=== PATIENT | male | born 1940 | race African-American/Black ===

== ENCOUNTER 2017-04-18 23:43 | Inpatient (IN) | payer MEDICARE, BC ==
--- OUTSIDE RECORDS SUMMARY | 2017-04-18 23:45 | XMS | Clinical Summary ---
:1940 Author Organization [facility] Address [address] [place] [address] Phone Care Team Providers Name Role Phone , Primary Care Provider Unavailable Allergies Not on File Current Medications Not on file Active Problems Not on file Social History Tobacco Use Types Packs/Day Years Used Date Never Assessed Sex Assigned at Date Recorded Not on file Last Filed Vital Signs Not on file Plan of Treatment Not on file Results Not on filefrom Last 3 Months
[2017-04-19 01:55] LABS: Troponin I 0.157 ng/mL (< 0.028)
[2017-04-19] MEDS ORDERED: Ondansetron ODT 4 MG TAB SL PRN (02:28)
[2017-04-19] MEDS ORDERED: Ondansetron HCl/PF 4 MG/2 ML Vial IVP PRN (02:28)
[2017-04-19] MEDS ORDERED: Sodium Chloride 0.9% 1,000 ML IV SCH (02:28)
[2017-04-19 02:36] VITALS: BMI 61.7
[2017-04-19] MEDS ORDERED: Piperacillin/Tazobactam 3.375 GM in Sodium Chloride 0.9% 100 ML IVPB SCH (04:00)
[2017-04-19] MEDS ORDERED: Potassium Chloride 20 MEQ in Premix Bag 1 BAG IVPB SCH (04:00)
[2017-04-19 07:29] LABS: Troponin I 0.181 ng/mL (< 0.028)
[2017-04-19 08:35] LABS: Anion Gap 16 mmol/L (10-20); BUN (Urea Nitrogen) 55 mg/dL (8.4-25.7); BUN/Creatinine Ratio 41.98; Calc. Creatinine Clearance 40 mL/min (70-130); Calcium 8.9 mg/dL (7.8-10.44); Carbon Dioxide 27 mmol/L (23-31); Chloride 112 mmol/L (98-107); Estimated GFR-MDRD 64; Magnesium 2.1 mg/dL (1.6-2.6); Phosphorus 3.5 mg/dL (2.3-4.7)
[2017-04-19 08:36] LABS: Digoxin 0.89 ng/mL (0.8-2.0)
[2017-04-19] MEDS ORDERED: Dextrose 5% in Water 1,000 ML IV PRN (08:47)
[2017-04-19] MEDS ORDERED: Nitroglycerin 0.4 MG TAB (25 Tab Bottle) PO PRN (08:47)
[2017-04-19] MEDS ORDERED: Dextrose 50% Abboject 50 ML SYRINGE SLOW IVP PRN (08:47)
[2017-04-19] MEDS ORDERED: 1/2 NS w/KCL 20 mEq 1,000 ML IV SCH (09:00)
[2017-04-19] MEDS ORDERED: FLU VACC TS2017-18 (>65YR) 0.5 ML SYRINGE IM ONE (09:00)
[2017-04-19] MEDS ORDERED: Acetaminophen 325 MG TAB PO PRN (09:15)
[2017-04-19] MEDS ORDERED: Acetaminophen 650 MG Suppository PR PRN (09:15)
[2017-04-19] MEDS ORDERED: Bisacodyl 10 MG SUPP PR PRN (09:15)
[2017-04-19] MEDS ORDERED: Eucerin (Mineral Oil/Petrolatum,White) 30 gm Jar TOP PRN (09:22)
[2017-04-19] MEDS ORDERED: Nitroglycerin 2% Ointment 1 INCH/1 GM Packet TOP PRN (09:22)
[2017-04-19] MEDS ORDERED: Polyethylene Glycol 3350 17 GM Packet PO PRN (09:22)
[2017-04-19] MEDS ORDERED: Diabetic Tussin 200 MG/10 ML UDCUP PO PRN (09:22)
[2017-04-19] MEDS ORDERED: RENALLY ADJUST ABX IVPB PRN (09:57)
--- NOTE | 2017-04-19 10:19 | CT ---
CT ABDOMEN AND PELVIS NONCONTRAST: History: Urinary tract infections. Sepsis. Renal failure. FINDINGS: Each renal collecting system and ureter and urinary bladder are decompressed without stone evident. Calcifications at each renal hilum are favored to be arterial in origin as there is prominent calcif ication throughout the arterial structures. Tiny pocket of gas is associated with the lower anterior wall of the urinary bladder. Lack of contrast limits evaluation for other abnormalities. Degenerative changes involve the lumbar spine. Calcified granulomata within the liver consistent with healed granulomatous disease. IMPRESSION: 1. No CT evidence of urinary tract obstruction or calcification. 2. Small pocket of gas at the anterior urinary bladder wall may be related to urinary bladder infect ion. 3. Atherosclerosis. POS: DARIO
[2017-04-19 10:24] LABS: #Lymphocytes 1.9 thou/uL (1.20-3.40); #Monocytes 0.9 thou/uL (0.11-0.59); #Neutrophils 12.4 thou/uL (1.40-6.50); %Basophils 0.1 % (0.0-1.0); %Eosinophils 0.3 % (0.0-10.0); %Lymphocytes 12.6 % (21.0-51.0); %Monocytes 5.9 % (0.0-10.0); Hematocrit 41.4 % (42.0-52.0); Mean Platelet Volume 11.1 fL (7.4-10.4); White Blood Cell (WBC) Count 15.2 thou/uL (4.8-10.8)
--- NOTE | 2017-04-19 10:25 | HP ---
PRIMARY CARE PHYSICIAN: Dr. Zaidi at [facility]. CODE STATUS: Full code. Surrogate decision maker to be verified. The patient is demented and this cannot be verified. CURRENT DIET AT [facility]: Thickened liquids only per [facility] records (nectar thick) diet c onsistency unclear. CHIEF COMPLAINT: Nausea, vomiting, diarrhea. HISTORY OF PRESENT ILLNESS: The patient is a 76-year-old male with chronic systolic heart failure, ventricular arrhythmias, advanced dementia, diabetes mellitus type 2. He was sent to the emergency room for evaluation for nausea, vomiting, and diarrhea. At this time, no information is available f rom the patient due to current cognitive status. The patient has a history of bilateral above knee amputation as well. Over the last 1-2 weeks, the patient has nausea, vomiting with decreased appetite. Per [facility] record, the patient has lost 14 pounds in the last few weeks. There was no fever or chills reporte d. There is no diarrhea or constipation reported. It is unclear when he had the last bowel movemen t. It is also unclear whether he had endoscopies in the past. The patient denies any abdominal harsha n at this time. In the emergency room at [place], his initial vital signs showed temperature 98.5, respirations 20, p ulse of 86, blood pressure 145/64. His WBC count was 18,000 with left shift. His sodium was 152 wi th potassium 3.3 with creatinine 2.32, BUN of 68. Troponins in the indeterminate range at 0.147. C hest x-ray was negative for infiltrate. His EKG showed normal sinus rhythm with nonspecific ST-T wa ve changes in the lateral leads. He was transferred to this facility for hospital admission. PAST MEDICAL HISTORY: 1. Diabetes mellitus type 2. 2. Hypertension. 3. Hyperlipidemia. 4. Chronic systolic heart failure, ejection fraction 35-40% range. 5. Advanced dementia. 6. Benign prostatic hypertrophy. 7. Paroxysmal atrial fibrillation. 8. Nonsustained ventricular tachycardia in 02/2017. 9. Status post AICD. 10. Paroxysmal atrial fibrillation. 11. Physical deconditioning. 12. Dysphagia. PAST SURGICAL HISTORY: 1. Coronary artery bypass grafting. 2. AICD placement. 3. Bilateral oberh-dur-sfnu amputation. ALLERGIES: No known drug allergies. CURRENT MEDICATIONS: (At the [facility]) 1. Flomax 0.4 mg daily. 2. Lisinopril 10 mg daily. 3. Lasix 80 mg b.i.d. that was started on 02/28/2017 when he was discharged from this facility. 4. Carvedilol 3.125 mg b.i.d. 5. Lipitor 20 mg at bedtime. 6. Zofran as needed. 7. Pepcid 20 mg b.i.d. 8. Namenda 10 mg b.i.d. 9. Insulin sliding scale. SOCIAL HISTORY: The patient currently resides at a nursing facility under the care of Dr. Zaidi. No history of smoking, alcohol or drug use. Family details unavailable. FAMILY HISTORY: Father with heart disease. REVIEW OF SYSTEMS: Cannot be reliably obtained from the patient due to current cognitive status. PHYSICAL EXAMINATION: VITAL SIGNS: As discussed above. GENERAL: A 76-year-old male with dementia, in no apparent distress. Denies any pain at this time. HEENT: Head atraumatic, normocephalic. Sclerae anicteric, dry mucous membranes. No oral lesion. NECK: Supple, no JVD appreciated. No carotid bruit. LUNGS: Showed scattered rales at bases. No wheezing or rhonchi. Lungs were symmetrical. CARDIOVASCULAR: S1, S2 present, 2/6 systolic murmur over the mitral area. AICD noted. No parastern al heaves or pulsations. ABDOMEN: Abdomen was soft, nontender, bowel sounds present, no rebound or guarding. No costoverteb ral angle tenderness. EXTREMITIES: The patient is status post bilateral idyva-aqm-lqgs amputations. SKIN: Warm and dry. LYMPH NODES: No palpable lymph nodes in the neck. PERIPHERAL VASCULAR: Radial pulses palpable bilaterally. MUSCULOSKELETAL: No joint swelling or tenderness. LABORATORY FINDINGS: As discussed above. EKG by my review as discussed above. Chest x-ray by my reena meeks as discussed above. IMPRESSION: 1. Acute kidney injury on chronic kidney disease stage 2 secondary to prerenal etiology. The patie nt is also on diuretics. He also has decreased appetite with nausea and vomiting over the past coup le of weeks. 2. Electrolyte imbalance. Patient has hypernatremia with a sodium of 152, potassium 3.3, probably secondary to dehydration. 3. Contraction alkalosis from diuresis/dehydration. 4. Abnormal troponins, probably secondary to demand ischemia. 5. Abnormal electrocardiogram. 6. Systemic inflammatory response syndrome, probably secondary to gastrointestinal etiology. Rule out urinary tract infection. 7. Swallow dysfunction. Patient is on nectar thick liquids at the [facility]. 8. Chronic systolic heart failure, ejection fraction 35-40% range. 9. Nonsustained ventricular tachycardia on telemetry earlier today with supraventricular tachycardi a. 10. Benign prostatic hypertrophy. 11. Diabetes mellitus type 2. 12. Advanced dementia. 13. Physical deconditioning. 14. Status post AICD. 15. Bilateral wljxd-jvo-vsxt amputation. PLAN: The patient will be monitored on telemetry. Cardiology will be consulted. We will gently re place electrolytes. Digoxin level in normal range. We will get a renal stone protocol. No contras t due to acute kidney injury. The patient cannot tolerate oral contrast due to nausea. We will hol d antibiotics for now. Consult Speech Therapy. We will keep him n.p.o. Plan of care was discussed with the patient. We will discuss the plan with the family when they arr cel[place].
[2017-04-19 10:45] LABS: Osmolality, Serum 342 mOsm/kg (280-295)
[2017-04-19 10:49] LABS: Digoxin 0.95 ng/mL (0.8-2.0)
[2017-04-19] MEDS: Meropenem 1 GM in Sodium Chloride 0.9% 100 ML IVPB SCH ×2 (11:22→22:54)
[2017-04-19] MEDS: Famotidine/PF 20 mg/2ml Vial SLOW IVP SCH (11:22)
[2017-04-19] MEDS: Potassium Chloride 40 MEQ in Dextrose 5% in Water 1,000 ML IV SCH ×2 (11:22)
[2017-04-19] MEDS: Insulin Regular 300 UNITS/3 ML VIAL SC PRN ×3 (11:23→20:54)
--- NOTE | 2017-04-19 14:31 | CON ---
DATE OF CONSULTATION: 04/19/2017 HISTORY OF PRESENT ILLNESS: Mr. Niels Gross is a 76-year-old black male who I evaluated once when he was in the hospital in 02/2017. At that time, he became short of breath, he was taken to [facility], given Lasix, and transferred here. He is extremely poor historian. At that time, stating that he was taken to [facility], but eventually taken to [place]. 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 He has a single chamber ICD and we never were able to identify the brand or be able to check the ICD. During that admission, he had episodes of paroxysmal atrial tachycardia and was placed on digoxin and he did not have any recurrence of his atrial arrhythmias. Also, he had episodes of nonsustained ventricular tachycardia, which only lasted several seconds and never had excessive rate. He was diuresed during that admission and was sent back to the skilled nursing in [place]. Again, the patient is a very poor historian and cannot give me much history at this time. He apparently had been having diarrhea and also vomiting. He was sent to [facility] ER and was found to have a BUN of 68, baseline 33, and a creatinine of 2.32, baseline 1.26. He was therefore transferred here for further evaluation. He denies any chest discomfort or shortness of breath. He denies any palpitations. PAST MEDICAL HISTORY: Ischemic cardiomyopathy, dementia, hypertension, hyperlipidemia, BPH, history of pancytopenia, diabetes, and generalized muscle wasting. OPERATIONS: Includes CABG, somewhere in [place], single chamber ICD implantation and bilateral bjttk-ncw-umko amputation. MEDICATIONS: Flomax 0.4 mg daily, Namenda 5 mg daily, lisinopril 10 mg daily, Levemir 7 units at bedtime, Humalog 10 units t.i.d., furosemide 80 mg b.i.d., digoxin 0.125 daily, carvedilol 3.125 b.i.d., and atorvastatin 20 at bedtime. ALLERGIES: None. SOCIAL AND FAMILY HISTORY: Unknown. REVIEW OF SYSTEMS: Unable to obtain due to patient's dementia. PHYSICAL EXAMINATION: VITAL SIGNS: Blood pressure 120/60, pulse of 74, sinus rhythm on the monitor. HEENT: PERRL. NECK: Supple. CHEST: Clear. CARDIAC: S1, S2 are normal, without any S3 or S4. There is a 1/6 holosystolic murmur at the apex. Carotid upstroke is normal, without bruits. ABDOMEN: Normal bowel sounds, without tenderness, organomegaly. EXTREMITIES: Revealed bilateral AKA. There is no edema. NEUROLOGIC: Patient is demented, but moves all extremities. SKIN: Warm and dry. LABORATORY DATA AND X-RAY FINDINGS: EKG revealed normal sinus rhythm, possible left atrial enlargement, nonspecific ST and T-wave changes. He has had an episode of idioventricular rhythm with five PVCs at approximately 100 per minute. Also, there is an episode of what appears to be atrial fibrillation with mild aberrancy. White count 18,000, hemoglobin 13.6, hematocrit 45.0, platelets 129,000. BUN 68, creatinine 2.32 which is fallen to a BUN of 55, creatinine of 1.31 with hydration overnight. Sodium 152, potassium 3.4, chloride 112, carbon dioxide 27, CK-MB is normal. Troponin I is minimally elevated at 0.181. Chest x-ray reveals no acute changes, single chamber ICD in place. IMPRESSION: 1. Vomiting and diarrhea. 2. Acute kidney injury secondary to volume depletion. 3. History of chronic systolic heart failure. 4. Ischemic cardiomyopathy with an ejection fraction of 35-40%. 5. Single chamber ICD - unable to identify the brand when he was here before. 6. History of nonsustained ventricular tachycardia. 7. Idioventricular rhythm during this admission. 8. Paroxysmal atrial tachycardia on last admission, which resolved after addition of digoxin. 9. Paroxysmal atrial fibrillation seen during this admission. 10. Hypertension. 11. Hypercholesterolemia. 12. Benign prostatic hypertrophy. 13. Diabetes. 14. Dementia. 15. Status post bilateral nubdj-bug-wndj amputation. PLAN: Again, attempts will be made to identify his ICD. He is being gently hydrated. Lasix, lisinopril are being held. He is being covered with broad- spectrum antibiotics. At the present time, I do not feel any further treatments for his cardiac arrhythmias is warranted. Digoxin level will be checked on this morning's blood with his volume depletion and acute kidney injury and nausea and vomiting. [facility]
[2017-04-19] MEDS ORDERED: cefTRIAXone\\ROCEPHIN 1 GM in Sodium Chloride 0.9% 100 ML IVPB SCH (14:45)
[2017-04-19] MEDS ORDERED: NPH, Human Insulin Isophane 300 UNIT/3 ML VIAL SC SCH (15:00)
[2017-04-19] MEDS: Heparin 5,000 UNITS/ML VIAL SC SCH (20:31)
[2017-04-19] MEDS: Nystatin Powder 15 GM BOT TOP SCH (20:31)
[2017-04-20] MEDS: Potassium Chloride 40 MEQ in Dextrose 5% in Water 1,000 ML IV SCH ×2 (01:32)
[2017-04-20 05:32] LABS: ALT (SGPT) 7 U/L (8-55); AST (SGOT) 10 U/L (5-34); Alkaline Phosphatase 74 U/L (40-150); Anion Gap 12 mmol/L (10-20); BUN (Urea Nitrogen) 28 mg/dL (8.4-25.7); Bilirubin, Total 0.5 mg/dL (0.2-1.2); Calc. Creatinine Clearance 62 mL/min (70-130); Calcium 8.9 mg/dL (7.8-10.44); Carbon Dioxide 30 mmol/L (23-31); Chloride 115 mmol/L (98-107); Estimated GFR-MDRD Greater than 90; Globulin 3.8 g/dL (2.4-3.5); Protein, Total 6.9 g/dL (5.8-8.1)
[2017-04-20 05:41] LABS: Hematocrit 40.1 % (42.0-52.0); Mean Platelet Volume 11.1 fL (7.4-10.4); Neutrophil 74 % (42-75); Red Blood Cell (RBC) Count 4.54 mill/uL (4.70-6.10); White Blood Cell (WBC) Count 14.5 thou/uL (4.8-10.8)
[2017-04-20 06:58] LABS: Magnesium 2.3 mg/dL (1.6-2.6)
[2017-04-20 07:09] LABS: Phosphorus 2.2 mg/dL (2.3-4.7)
[2017-04-20 07:28] LABS: Osmolality, Serum 329 mOsm/kg (280-295)
[2017-04-20] MEDS ORDERED: Potassium Phosphate 9 MMOL, Admixture Fee 1 EACH in Sodium Chloride 0.9% 100 ML IVPB SCH (08:30)
[2017-04-20] MEDS: Famotidine/PF 20 mg/2ml Vial SLOW IVP SCH (09:11)
[2017-04-20] MEDS: Heparin 5,000 UNITS/ML VIAL SC SCH (09:11)
[2017-04-20] MEDS: Nystatin Powder 15 GM BOT TOP SCH ×2 (09:12→21:04)
[2017-04-20] MEDS: Digoxin 0.125 MG TAB PO SCH (09:40)
[2017-04-20 09:57] LABS: Bilirubin Negative (Negative); Blood, Urine Negative (Negative); Glucose, Urine (Dipstick) 250 mg/dL (Negative); Ketone, Urine Negative (Negative); Nitrite Negative (Negative); Protein, Urine (Dipstick) Trace mg/dL (Neg-Trace)
[2017-04-20 10:00] LABS: Bacteria/HPF None Seen HPF (None Seen); Hyaline Casts/LPF 0-3 HYALINE CAST LPF (0-3 Hyaline)
[2017-04-20] MEDS: Meropenem 1 GM in Sodium Chloride 0.9% 100 ML IVPB SCH (11:50)
[2017-04-20] MEDS ORDERED: Digoxin 0.5 MG/2 ML AMP SLOW IVP SCH (12:45)
--- NOTE | 2017-04-20 15:00 | PDOC.PN ---
- Subjective Encounter Start Date: 04/20/17 Encounter Start Time: 11:00 Patient seen and examined. No new complaints. No overnight events - Objective Resuscitation Status: Resuscitation Status FULL:Full Resuscitation MAR Reviewed: Yes Vital Signs & Weight: Vital Signs (12 hours) Temp Pulse Resp BP Pulse Ox 04/20/17 13:41 64 04/20/17 12:00 98.9 F 59 L 16 138/62 94 L 04/20/17 09:40 64 04/20/17 08:00 98.5 F 64 16 150/69 H 97 04/20/17 07:30 98.3 F 65 16 04/20/17 04:50 98.3 F 65 16 151/66 H 95 04/20/17 03:17 96 Weight Weight 134 lb I&O: 04/19/17 04/20/17 04/21/17 06:59 06:59 06:59 Intake Total 1625 Balance 1625 Result Diagrams: 04/20/17 04:47 04/20/17 04:47 Additional Labs: Accuchecks 04/20/17 04/20/17 04/20/17 12:05 09:13 04:37 POC Glucose 209 H 199 H 176 H 04/20/17 04/19/17 04/19/17 00:01 20:48 18:13 POC Glucose 171 H 277 H 254 H Radiology Reviewed by me: Yes (CT abd - ?UTI) EKG Reviewed by me: Yes (SR, tachyarrythmia) Phys Exam - Physical Examination Constitutional: NAD HEENT: moist MMs Neck: no JVD Respiratory: no wheezing, no rales, no rhonchi Symmetrical Cardiovascular: RRR, no rub no heaves/pulsations Gastrointestinal: soft, non-tender, no distention, positive bowel sounds Neurological: non-focal, normal sensation, moves all 4 limbs Psychiatric: normal affect Deviation from normal: Baseline dementia, Alert/Awake Skin: no rash Dx/Plan - Plan IMPRESSION: 1. Acute kidney injury on chronic kidney disease stage 2 . improving 2. Electrolyte imbalance (hypernatremia/hypokalemia/hypophophatemia) 3. Contraction alkalosis from diuresis/dehydration. 4. Abnormal troponins, probably secondary to demand ischemia. 5. Abnormal electrocardiogram. 6. Systemic inflammatory response syndrome due to urinary tract infection. 7. Swallow dysfunction. Patient is on nectar thick liquids at the [facility]. NPO now 8. Chronic systolic heart failure, ejection fraction 35-40% range. 9. Nonsustained ventricular tachycardia on telemetry earlier today with supraventricular tachycardia. Cardiology following 10. Benign prostatic hypertrophy. 11. Diabetes mellitus type 2. 12. Advanced dementia. 13. Physical deconditioning. 14. Status post AICD. 15. Bilateral afdic-opm-swdf amputation. 16. Mild protein calorie malnutrition. Laboratory Tests 04/20/17 04/20/17 04:47 04:47 Serum Osmolality 329 H* Phosphorus 2.2 L PLAN * Change Heparin to Lovenox * Cardiology following * Not safe for any diet per HALL SUPERVISOR * Change betablockers and digoxin to IV * AM labs * Replace electrolytes * Cont to monitor * Cont current IVF - reduce KCL to 20 meq in each bag * Monitor for fluid overload * Cont sliding scale * Not on ACEI due to SHAZIA Review of Systems - Review of Systems Other: Cannot obtain due to current mentation - Medications/Allergies Allergies/Adverse Reactions: Allergies Allergy/AdvReac Type Severity Reaction Status Date / Time No Known Allergies Allergy Verified 02/23/17 03:41 Medications: Current Medications Acetaminophen (Tylenol) 650 mg CA Q4H PRN PRN Reason: Headache/Fever or Pain Acetaminophen (Tylenol) 650 mg PO Q4H PRN PRN Reason: Headache/Fever or Pain Albuterol/Ipratropium (Duoneb) 3 ml NEB [id number] PRN PRN Reason: SOB &/or Wheezing Bisacodyl (Dulcolax) 10 mg CA Q24H PRN PRN Reason: Constipation Carvedilol (Coreg) 3.125 mg PO BID-[facility] Dextrose/Water (Dextrose 50%) 25 gm SLOW IVP PRN PRN PRN Reason: Hypoglycemia Digoxin (Lanoxin) 0.125 mg PO DAILY [facility] Last Admin: 04/20/17 09:40 Dose: Not Given Enoxaparin Sodium (Lovenox) 30 mg SC 2100 [facility] Famotidine (Pepcid) 20 mg SLOW IVP Q24HR [facility] Last Admin: 04/20/17 09:11 Dose: 20 mg Glucagon (Glucagon) 1 mg IM PRN PRN PRN Reason: Hypoglycemia Guaifenesin (Robitussin Sf) 200 mg PO Q4H PRN PRN Reason: Cough Hydralazine HCl (Apresoline) 5 mg SLOW IVP Q4H PRN PRN Reason: SBP Greater Than 180 Dextrose/Water (D5w) 1,000 mls @ 0 mls/hr IV .Q0M PRN; As Directed PRN Reason: Hypoglycemia Potassium Chloride 40 meq/ (Dextrose/Water) 1,020 mls @ 75 mls/hr IV .[id number] [facility] Last Admin: 04/20/17 01:32 Dose: 1,020 mls Ceftriaxone Sodium 1 gm/ (Sodium Chloride) 100 mls @ 200 mls/hr IVPB DAILY [facility] Insulin Human Regular (Humulin R) 0 units SC .MILD SLIDING SCALE PRN PRN Reason: Mild Correctional Scale Last Admin: 04/19/17 18:40 Dose: 4 unit Insulin Human Regular (Humulin R) 0 units SC .BEDTIME SLIDING SC PRN PRN Reason: Bedtime Correctional Scale Last Admin: 04/19/17 20:54 Dose: 3 unit Metoprolol Tartrate (Lopressor) 2.5 mg IVP Q8HR [facility] Mineral Oil/White Petrolatum (Eucerin Cream) 0 gm TOP BIDPRN PRN PRN Reason: Dry Skin Miscellaneous Medication (Pharmacy To Dose) 1 each IVPB PRN PRN PRN Reason: Pharmacy to dose Nitroglycerin (Nitrostat) 0.4 mg PO Q5MIN PRN PRN Reason: Chest Pain Nitroglycerin (Nitro-Bid 2% Ointment) 0.5 inch TOP Q8H PRN PRN Reason: SBP Greater Than 180 Nystatin (Mycostatin Powder) 0 gm TOP BID [facility] Last Admin: 04/20/17 09:12 Dose: 1 applic Polyethylene Glycol (Miralax) 17 gm PO DAILYPRN PRN PRN Reason: Constipation Sodium Chloride (Flush - Normal Saline) 10 ml IVF Q12HR [facility] Last Admin: 04/20/17 09:13 Dose: Not Given Sodium Chloride (Flush - Normal Saline) 10 ml IVF PRN PRN PRN Reason: Saline Flush Last Admin: 04/19/17 05:07 Dose: 10 ml
[2017-04-20] MEDS: Metoprolol Tartrate 5 MG/5 ML VIAL IVP SCH ×2 (16:25→21:04)
[2017-04-20] MEDS: Carvedilol 3.125 MG TAB PO SCH (17:53)
[2017-04-20] MEDS: Dextrose 5% w/ 20 mEq KCl 1,000 ML IV SCH (17:56)
[2017-04-20] MEDS: Enoxaparin Sodium 30 MG/0.3 ML SYRINGE SC SCH (21:01)
[2017-04-20] MEDS ORDERED: Lorazepam 2 MG/ML VIAL SLOW IVP SCH (21:15)
[2017-04-21] MEDS: Insulin Regular 300 UNITS/3 ML VIAL SC PRN ×3 (05:09→18:33)
[2017-04-21 05:19] LABS: #Eosinphils 0.1 thou/uL (0.0-0.7); #Lymphocytes 2.5 thou/uL (1.20-3.40); #Monocytes 0.8 thou/uL (0.11-0.59); #Neutrophils 8.4 thou/uL (1.40-6.50); %Eosinophils 1.2 % (0.0-10.0); %Monocytes 6.5 % (0.0-10.0); Hematocrit 42.2 % (42.0-52.0); Mean Platelet Volume 11.8 fL (7.4-10.4); Red Blood Cell (RBC) Count 4.75 mill/uL (4.70-6.10); White Blood Cell (WBC) Count 11.8 thou/uL (4.8-10.8)
[2017-04-21] MEDS: Dextrose 5% w/ 20 mEq KCl 1,000 ML IV SCH (05:19)
[2017-04-21 05:28] LABS: Anion Gap 10 mmol/L (10-20); BUN (Urea Nitrogen) 16 mg/dL (8.4-25.7); BUN/Creatinine Ratio 18.39; Calc. Creatinine Clearance 61 mL/min (70-130); Calcium 8.9 mg/dL (7.8-10.44); Carbon Dioxide 27 mmol/L (23-31); Chloride 114 mmol/L (98-107); Estimated GFR-MDRD Greater than 90; Magnesium 2.3 mg/dL (1.6-2.6); Phosphorus 2.2 mg/dL (2.3-4.7)
[2017-04-21] MEDS: Metoprolol Tartrate 5 MG/5 ML VIAL IVP SCH (05:49)
[2017-04-21] MEDS ORDERED: Dextrose 5% w/ 20 mEq KCl 1,000 ML IV SCH (07:58)
[2017-04-21] MEDS: Carvedilol 3.125 MG TAB PO SCH ×3 (08:40→16:01)
[2017-04-21] MEDS ORDERED: cefTRIAXone\\ROCEPHIN 1 GM in Sodium Chloride 0.9% 100 ML IVPB SCH (09:00)
[2017-04-21] MEDS: K-Phos Neutral 250 MG TAB PO SCH ×4 (09:40→23:52)
[2017-04-21] MEDS: Nystatin Powder 15 GM BOT TOP SCH ×2 (09:43→21:32)
[2017-04-21] MEDS: Digoxin 0.125 MG TAB PO SCH (09:43)
[2017-04-21] MEDS: Famotidine/PF 20 mg/2ml Vial SLOW IVP SCH (09:48)
--- NOTE | 2017-04-21 15:48 | PDOC.CTH ---
<Nikki Nolen - Last Filed: 04/21/17 15:35> Cardiology Progress Note - Subjective the pt was seen and examined. No overnight events. No cardiac complaints. Now he can have PO. - Objective Vital Signs Temp Pulse Resp BP Pulse Ox 04/21/17 12:19 97.7 F 55 L 17 145/63 H 95 04/21/17 10:48 98.6 F 53 L 18 97 04/21/17 09:43 53 L 04/21/17 07:40 98.6 F 53 L 18 135/62 97 04/21/17 04:00 98.4 F 55 L 16 137/60 94 L Weight 136 lb 04/20/17 04/21/17 04/22/17 06:59 06:59 06:59 Intake Total 1625 1620 Output Total 50 Balance 1625 1570 - Physical Examination General/Neuro: other: (confused) Neck: no JVD present Lungs: CTA Heart: RRR Abdomen: soft Extremities: other: (Dutch AKAlexsandra) Other PE findings: Bruit in Rt carotid - Telemetry Telemetry Rhythm: SB-SR 50-60s - Labs Result Diagrams: 04/21/17 04:40 04/21/17 04:40 Troponin/CKMB Troponin I 0.181 ng/mL (< 0.028) H 04/19/17 07:03 - Assessment/Plan 1. AICD 2ndary to Ischemic CMY - S/p Single chamber [employer] scientific AICD in 2010 and last interrogation was in 2012. The record showed multiple Non- sustained V Tach with out any therapy, mainly on 04/2017. Hx of SVT during this admission 2. CAD with Hx of CABG in [place] - cont. monitor on tele 3. Chronic systolic HF with EF of 35-40% - 4. HTN - stable; may re-start Lisinopril if his BP is elevated since his renal function level is stable at this time 5. DM type 2 - managed by PCP 6. Dutch CHOPRA 7. Dementia with swallow dysfunction - on [place] thick liquid MAR reviewed Review of Systems - Review of Systems Constitutional: reports: no symptoms reported EENTM: reports: no symptoms reported Respiratory: reports: no symptoms reported Cardiac (ROS): reports: no symptoms reported ABD/GI: reports: no symptoms reported : reports: no symptoms reported Musculoskeletal: reports: no symptoms reported Skin: reports: no symptoms reported <Ani Johnson - Last Filed: 04/21/17 20:08> Cardiology Progress Note - Objective Vital Signs Temp Pulse Resp BP Pulse Ox 04/21/17 15:40 97.4 F L 58 L 16 160/63 H 98 04/21/17 12:19 97.7 F 55 L 17 145/63 H 95 04/21/17 10:48 98.6 F 53 L 18 97 04/21/17 09:43 53 L Weight 136 lb 04/20/17 04/21/17 04/22/17 06:59 06:59 06:59 Intake Total 1625 1620 1085 Output Total 50 Balance 1625 1570 1085 - Labs Result Diagrams: 04/21/17 04:40 04/21/17 04:40 Troponin/CKMB Troponin I 0.181 ng/mL (< 0.028) H 04/19/17 07:03 - Assessment/Plan Pt. was seen and eval. by me. I agree with the A\P by the PUBLIC ADDRESS ANNOUNCER. Pt. and plan discussed.
[2017-04-21] MEDS ORDERED: Lorazepam 0.5 MG TAB PO PRN (16:58)
--- NOTE | 2017-04-21 17:00 | PDOC.EVN ---
Event Note - Event Note Event Note: Pt pulled IV line. Refusing new IV access. Will leave IV out for now. Will reassess in AM based on labs.
--- NOTE | 2017-04-21 20:11 | PDOC.PN ---
- Subjective Encounter Start Date: 04/21/17 Encounter Start Time: 13:00 Patient seen and examined. No new complaints. No overnight events. No CP. - Objective Resuscitation Status: Resuscitation Status FULL:Full Resuscitation MAR Reviewed: Yes Vital Signs & Weight: Vital Signs (12 hours) Temp Pulse Resp BP Pulse Ox 04/21/17 15:40 97.4 F L 58 L 16 160/63 H 98 04/21/17 12:19 97.7 F 55 L 17 145/63 H 95 04/21/17 10:48 98.6 F 53 L 18 97 04/21/17 09:43 53 L Weight Weight 136 lb I&O: 04/20/17 04/21/17 04/22/17 06:59 06:59 06:59 Intake Total 1625 1620 1085 Output Total 50 Balance 1625 1570 1085 Result Diagrams: 04/21/17 04:40 04/21/17 04:40 Additional Labs: Accuchecks 04/21/17 04/21/17 04/21/17 16:30 12:08 04:27 POC Glucose 281 H 249 H 283 H 04/21/17 04/20/17 00:40 17:15 POC Glucose 288 H 245 H EKG Reviewed by me: Yes (SR/NSVT) Phys Exam - Physical Examination Constitutional: NAD Neck: no JVD Respiratory: no wheezing, no rhonchi Cardiovascular: RRR, no rub Gastrointestinal: soft, non-tender, positive bowel sounds Dx/Plan - Plan IMPRESSION: 1. Acute kidney injury on chronic kidney disease stage 2 . 2. Electrolyte imbalance (hypernatremia/hypokalemia/hypophophatemia) Phosphorus 2.2 3. Sepsis suspected due to Aspiration pneumonia. Urine cultures negative 4. Abnormal troponins, probably secondary to demand ischemia. 5. Abnormal electrocardiogram/Tele 6. Systemic inflammatory response syndrome due to urinary tract infection. 7. Swallow dysfunction. Patient is on nectar thick liquids at the [facility]. on modified diet 8. Chronic systolic heart failure, ejection fraction 35-40% range. s/p AICD 9. Nonsustained ventricular tachycardia on telemetry earlier today with supraventricular tachycardia. Cardiology following 10. Benign prostatic hypertrophy. 11. Diabetes mellitus type 2. 12. Advanced dementia. 13. Physical deconditioning. 14. Status post AICD. 15. Bilateral [id number] amputation. 16. Mild protein calorie malnutrition. 17. Contraction alkalosis from diuresis/dehydration. PLAN * Cont betablockers and digoxin * AM labs * Replace electrolytes * Cont to monitor * Cont IVF * Monitor for fluid overload * Cont insulin sliding scale * Not on ACEI due to SHAZIA Review of Systems - Review of Systems Other: Cannot obtain due to current mentation - Medications/Allergies Allergies/Adverse Reactions: Allergies Allergy/AdvReac Type Severity Reaction Status Date / Time No Known Allergies Allergy Verified 02/23/17 03:41 Medications: Current Medications Acetaminophen (Tylenol) 650 mg IN Q4H PRN PRN Reason: Headache/Fever or Pain Acetaminophen (Tylenol) 650 mg PO Q4H PRN PRN Reason: Headache/Fever or Pain Albuterol/Ipratropium (Duoneb) 3 ml NEB A8SH-TX PRN PRN Reason: SOB &/or Wheezing Amoxicillin/Clavulanate Potassium (Augmentin 600mg/5ml Oral Susp) 600 mg PO BID [facility] Bisacodyl (Dulcolax) 10 mg IN Q24H PRN PRN Reason: Constipation Carvedilol (Coreg) 3.125 mg PO BID-[facility] Last Admin: 04/21/17 16:01 Dose: 3.125 mg Dextrose/Water (Dextrose 50%) 25 gm SLOW IVP PRN PRN PRN Reason: Hypoglycemia Digoxin (Lanoxin) 0.125 mg PO DAILY [facility] Last Admin: 04/21/17 09:43 Dose: Not Given Enoxaparin Sodium (Lovenox) 30 mg SC 2100 [facility] Last Admin: 04/20/17 21:01 Dose: 30 mg Glucagon (Glucagon) 1 mg IM PRN PRN PRN Reason: Hypoglycemia Guaifenesin (Robitussin Sf) 200 mg PO Q4H PRN PRN Reason: Cough Hydralazine HCl (Apresoline) 5 mg SLOW IVP Q4H PRN PRN Reason: SBP Greater Than 180 Dextrose/Water (D5w) 1,000 mls @ 0 mls/hr IV .Q0M PRN; As Directed PRN Reason: Hypoglycemia Insulin Human Regular (Humulin R) 0 units SC .MILD SLIDING SCALE PRN PRN Reason: Mild Correctional Scale Last Admin: 04/21/17 18:33 Dose: 4 unit Insulin Human Regular (Humulin R) 0 units SC .BEDTIME SLIDING SC PRN PRN Reason: Bedtime Correctional Scale Last Admin: 04/19/17 20:54 Dose: 3 unit Lorazepam (Ativan) 0.5 mg PO Q6H PRN PRN Reason: Agitation Stop: 04/22/17 07:00 Memantine (Namenda) 5 mg PO BID [facility] Mineral Oil/White Petrolatum (Eucerin Cream) 0 gm TOP BIDPRN PRN PRN Reason: Dry Skin Miscellaneous Medication (Pharmacy To Dose) 1 each IVPB PRN PRN PRN Reason: Pharmacy to dose Nitroglycerin (Nitrostat) 0.4 mg PO Q5MIN PRN PRN Reason: Chest Pain Nitroglycerin (Nitro-Bid 2% Ointment) 0.5 inch TOP Q8H PRN PRN Reason: SBP Greater Than 180 Nystatin (Mycostatin Powder) 0 gm TOP BID [facility] Last Admin: 04/21/17 09:43 Dose: 1 applic Phosphorus (Kphos Neutral) 500 mg PO QID-WM [facility] Last Admin: 04/21/17 15:44 Dose: 500 mg Polyethylene Glycol (Miralax) 17 gm PO DAILYPRN PRN PRN Reason: Constipation Sodium Chloride (Flush - Normal Saline) 10 ml IVF Q12HR [facility] Last Admin: 04/21/17 09:42 Dose: 10 ml Sodium Chloride (Flush - Normal Saline) 10 ml IVF PRN PRN PRN Reason: Saline Flush Last Admin: 04/19/17 05:07 Dose: 10 ml
[2017-04-21] MEDS: Amoxicillin/Potassium Clav 600 mg/5 ml Oral Suspension PO SCH (21:31)
[2017-04-21] MEDS: Enoxaparin Sodium 30 MG/0.3 ML SYRINGE SC SCH (21:32)
[2017-04-22 06:44] LABS: #Basophils 0.1 thou/uL (0.0-0.2); #Eosinphils 0.1 thou/uL (0.0-0.7); #Monocytes 0.7 thou/uL (0.11-0.59); #Neutrophils 8.2 thou/uL (1.40-6.50); %Basophils 0.7 % (0.0-1.0); %Eosinophils 1.3 % (0.0-10.0); %Lymphocytes 18.2 % (21.0-51.0); %Monocytes 6.4 % (0.0-10.0); Hematocrit 42.2 % (42.0-52.0); Mean Platelet Volume 11.3 fL (7.4-10.4); Red Blood Cell (RBC) Count 4.78 mill/uL (4.70-6.10); White Blood Cell (WBC) Count 11.1 thou/uL (4.8-10.8)
[2017-04-22 07:19] LABS: Anion Gap 11 mmol/L (10-20); BUN (Urea Nitrogen) 11 mg/dL (8.4-25.7); BUN/Creatinine Ratio 15.07; Calc. Creatinine Clearance 72 mL/min (70-130); Calcium 8.9 mg/dL (7.8-10.44); Carbon Dioxide 28 mmol/L (23-31); Chloride 115 mmol/L (98-107); Estimated GFR-MDRD Greater than 90; Magnesium 2.2 mg/dL (1.6-2.6); Phosphorus 3.1 mg/dL (2.3-4.7)
[2017-04-22] MEDS: Digoxin 0.125 MG TAB PO SCH (09:41)
[2017-04-22] MEDS: Carvedilol 3.125 MG TAB PO SCH ×2 (09:41→17:26)
[2017-04-22] MEDS: Nystatin Powder 15 GM BOT TOP SCH ×2 (09:43→21:13)
[2017-04-22] MEDS: K-Phos Neutral 250 MG TAB PO SCH ×4 (10:23→21:12)
[2017-04-22] MEDS: Amoxicillin/Potassium Clav 600 mg/5 ml Oral Suspension PO SCH ×2 (10:25→21:12)
--- NOTE | 2017-04-22 11:24 | PDOC.PN ---
- Subjective Encounter Start Date: 04/22/17 Encounter Start Time: 11:10 Subjective: f/u for SHAZIA, suspected sepsis and multiple metabolic derangements and -: electrolyte disorders. No new complaints. - Objective Resuscitation Status: Resuscitation Status FULL:Full Resuscitation MAR Reviewed: Yes Vital Signs & Weight: Vital Signs (12 hours) Temp Pulse Resp BP Pulse Ox 04/22/17 09:41 62 04/22/17 04:00 97.5 F L 62 18 172/72 H 100 Weight Weight 134 lb I&O: 04/21/17 04/22/17 04/23/17 06:59 06:59 06:59 Intake Total 1620 1085 120 Output Total 50 Balance 1570 1085 120 Result Diagrams: 04/22/17 06:28 04/22/17 06:28 Additional Labs: Accuchecks 04/22/17 04/22/17 04/22/17 07:58 05:55 03:56 POC Glucose 169 H 202 H 176 H 04/21/17 04/21/17 04/21/17 20:53 16:30 12:08 POC Glucose 232 H 281 H 249 H Laboratory Tests 04/19/17 04/19/17 04/20/17 07:03 10:01 04:47 Sodium 152 H 153 H Serum Osmolality 342 H* Albumin 04/20/17 04/21/17 04/21/17 04:47 04:40 04:40 Sodium 147 H Serum Osmolality 329 H* 326 H Albumin 04/22/17 04/22/17 04:50 06:28 Sodium Serum Osmolality 320 H Albumin 3.0 L Microbiology 04/19/17 14:11 Stool Stool Lactoferrin - Final 04/19/17 14:11 Stool Stool Culture - Final 04/19/17 14:11 Stool Campylobacter Antigen Assay - Final 04/19/17 14:11 Stool Shiga Toxin Test - Final 04/19/17 14:11 Stool C. difficile GDH Antigen & Toxins - Final 04/19/17 09:25 Urine clean catch Urine Culture - Preliminary NO GROWTH AT 24 HOURS EKG Reviewed by me: Yes (Tele - 7 beats WCT, NSVT) Phys Exam - Physical Examination Constitutional: NAD HEENT: PERRLA Neck: no JVD, supple Respiratory: no wheezing Cardiovascular: RRR Gastrointestinal: soft, non-tender, no distention, positive bowel sounds bilat AKA Musculoskeletal: pulses present Neurological: moves all 4 limbs Skin: no rash, cap refill <2 seconds Dx/Plan (1) SHAZIA (acute kidney injury) Code(s): N17.9 - ACUTE KIDNEY FAILURE, UNSPECIFIED Status: Acute Comment: Resolved with fluid replacement (2) Hypernatremia Code(s): E87.0 - HYPEROSMOLALITY AND HYPERNATREMIA Status: Acute Comment: Persistent, resume IVF's with D5W at 75ml/h to increase free H20 intake, repeat Na+ level in am (3) Sepsis Code(s): A41.9 - SEPSIS, UNSPECIFIED ORGANISM Status: Suspected Comment: Suspected due to aspiration pneumonia, resolved (4) Aspiration pneumonia Code(s): J69.0 - PNEUMONITIS DUE TO INHALATION OF FOOD AND VOMIT Status: Acute Qualifiers: Aspiration pneumonia type: unspecified Laterality: unspecified laterality Comment: Continue Augmentin suspension, aspiration precautions (5) Hypophosphatemia Code(s): E83.39 - OTHER DISORDERS OF PHOSPHORUS METABOLISM Status: Acute Comment: KPhos QID with meals (6) Ischemic cardiomyopathy Code(s): I25.5 - ISCHEMIC CARDIOMYOPATHY Status: Chronic Comment: EF 35%, continue supportive care, compensated currently (7) NSVT (nonsustained ventricular tachycardia) Code(s): I47.2 - VENTRICULAR TACHYCARDIA Status: Acute Comment: Continue Coreg and Digoxin, ICD in place - Plan continue antibiotics, PT/OT, social welfare clerk, speech therapy, respiratory therapy, DVT proph w/lovenox Stable overall -: Continue D5W at 75ml/h -: Continue Augmentin BID -: Contiue KPhos QID -: AM lab: BMP, Mg++, PO3 * .
[2017-04-22] MEDS: Dextrose 5% in Water 1,000 ML IV SCH (17:27)
[2017-04-22] MEDS: Insulin Regular 300 UNITS/3 ML VIAL SC PRN (17:40)
--- NOTE | 2017-04-22 17:59 | PDOC.CTH ---
<Nikki Nolen - Last Filed: 04/22/17 17:59> Cardiology Progress Note - Subjective The pt was seen and examined. No overnight events. No cardiac complaints. The pt is confused - Objective Vital Signs Temp Pulse Resp BP Pulse Ox 04/22/17 16:00 98.2 F 69 18 148/65 H 04/22/17 09:41 62 04/22/17 08:00 98.4 F 62 18 154/68 H 93 L Weight 134 lb 04/21/17 04/22/17 04/23/17 06:59 06:59 06:59 Intake Total 1620 1085 480 Output Total 50 Balance 1570 1085 480 - Physical Examination General/Neuro: other: (only name) Neck: no JVD present Lungs: CTA Heart: RRR Abdomen: soft Extremities: other: (Bilat AKA) - Telemetry Telemetry Rhythm: SR - Labs Result Diagrams: 04/22/17 06:28 04/22/17 06:28 Troponin/CKMB Troponin I 0.181 ng/mL (< 0.028) H 04/19/17 07:03 - Assessment/Plan 1. AICD 2ndary to Ischemic CMY - S/p Single chamber [employer] AICD in 2010 and last interrogation was in 2012. The record showed multiple Non- sustained V Tach with out any therapy, mainly on 04/2017. Hx of SVT during this admission 2. CAD with Hx of CABG in [place] - cont. monitor on tele 3. Chronic systolic HF with EF of 35-40% - stable; cont. monitor 4. SHAZIA - stable after fluid replacement; cont. monitor 5. HTN - stable; may re-start Lisinopril if his BP is elevated since his renal function level is stable at this time 6. Hypernatremia - on D5W at 75ml/h; managed by PCP 7. DM type 2 - managed by PCP 8. Bilat AKA 9. Dementia with swallow dysfunction - on [place] thick liquid MAR reviewed Review of Systems - Review of Systems Constitutional: reports: no symptoms reported EENTM: reports: no symptoms reported Respiratory: reports: no symptoms reported Cardiac (ROS): reports: no symptoms reported ABD/GI: reports: no symptoms reported : reports: no symptoms reported Musculoskeletal: reports: no symptoms reported <Ani Johnson - Last Filed: 04/22/17 22:26> Cardiology Progress Note - Objective Vital Signs Temp Pulse Resp BP Pulse Ox 04/22/17 20:00 97.7 F 71 16 171/74 H 94 L 04/22/17 16:00 98.2 F 69 18 148/65 H Weight 134 lb 04/21/17 04/22/17 04/23/17 06:59 06:59 06:59 Intake Total 1620 1085 480 Output Total 50 Balance 1570 1085 480 - Labs Result Diagrams: 04/22/17 06:28 04/22/17 06:28 Troponin/CKMB Troponin I 0.181 ng/mL (< 0.028) H 04/19/17 07:03 - Assessment/Plan Pt. seen and evaluated. i agree with the A/P by the BRANCH SALES MANAGER
[2017-04-22] MEDS: Enoxaparin Sodium 30 MG/0.3 ML SYRINGE SC SCH (21:13)
[2017-04-23] MEDS: Insulin Regular 300 UNITS/3 ML VIAL SC PRN ×5 (01:11→21:30)
[2017-04-23 07:51] LABS: Anion Gap 12 mmol/L (10-20); BUN (Urea Nitrogen) 11 mg/dL (8.4-25.7); Calc. Creatinine Clearance 76 mL/min (70-130); Calcium 8.4 mg/dL (7.8-10.44); Carbon Dioxide 27 mmol/L (23-31); Chloride 114 mmol/L (98-107); Estimated GFR-MDRD Greater than 90; Magnesium 2.1 mg/dL (1.6-2.6); Phosphorus 3.6 mg/dL (2.3-4.7)
[2017-04-23] MEDS: Carvedilol 3.125 MG TAB PO SCH ×3 (09:39→19:08)
[2017-04-23] MEDS: Dextrose 5% in Water 1,000 ML IV SCH ×2 (09:40→20:44)
[2017-04-23] MEDS: Digoxin 0.125 MG TAB PO SCH (09:40)
[2017-04-23] MEDS: K-Phos Neutral 250 MG TAB PO SCH ×4 (09:45→20:38)
[2017-04-23] MEDS: Nystatin Powder 15 GM BOT TOP SCH ×2 (09:45→20:39)
[2017-04-23] MEDS: Amoxicillin/Potassium Clav 600 mg/5 ml Oral Suspension PO SCH ×2 (12:08→20:38)
--- NOTE | 2017-04-23 14:07 | PDOC.PN ---
- Subjective Encounter Start Date: 04/23/17 Encounter Start Time: 14:00 Subjective: f/u for dehydration and hypernatremia on current D5W IVF. No new complaints -: Tele showing more frequent NSVT started on Amiodarone. - Objective Resuscitation Status: Resuscitation Status FULL:Full Resuscitation MAR Reviewed: Yes Vital Signs & Weight: Vital Signs (12 hours) Temp Pulse Resp BP Pulse Ox 04/23/17 11:43 98.3 F 64 16 150/65 H 98 04/23/17 09:40 64 04/23/17 08:00 98.3 F 64 16 95 04/23/17 07:05 98.2 F 55 L 16 149/65 H 95 04/23/17 04:40 98.0 F 54 L 16 174/74 H 94 L Weight Weight 138 lb 1.6 oz I&O: 04/22/17 04/23/17 04/24/17 06:59 06:59 06:59 Intake Total 1085 1455 Balance 1085 1455 Result Diagrams: 04/22/17 06:28 04/23/17 07:15 Additional Labs: Accuchecks 04/23/17 04/23/17 04/23/17 11:47 08:32 04:52 POC Glucose 318 H 247 H 244 H 04/23/17 04/22/17 04/22/17 00:00 20:22 16:24 POC Glucose 260 H 302 H 265 H Microbiology 04/19/17 14:11 Stool Stool Lactoferrin - Final 04/19/17 14:11 Stool Stool Culture - Final 04/19/17 14:11 Stool Campylobacter Antigen Assay - Final 04/19/17 14:11 Stool Shiga Toxin Test - Final 04/19/17 14:11 Stool C. difficile GDH Antigen & Toxins - Final 04/19/17 09:25 Urine clean catch Urine Culture - Preliminary NO GROWTH AT 24 HOURS Laboratory Tests 04/19/17 04/19/17 04/20/17 07:03 10:01 04:47 Sodium 152 H 153 H Serum Osmolality 342 H* Albumin 04/20/17 04/21/17 04/21/17 04:47 04:40 04:40 Sodium 147 H Serum Osmolality 329 H* 326 H Albumin 04/22/17 04/22/17 04:50 06:28 Sodium Serum Osmolality 320 H Albumin 3.0 L Laboratory Tests 04/23/17 07:15 Calcium 8.4 Phosphorus 3.6 Magnesium 2.1 EKG Reviewed by me: Yes (Tele - NSVT episodes) Phys Exam - Physical Examination Constitutional: NAD alert, responsive HEENT: PERRLA Neck: no JVD, supple Respiratory: no wheezing, clear to auscultation bilateral Cardiovascular: RRR Gastrointestinal: soft, non-tender, no distention, positive bowel sounds bilat AKA Musculoskeletal: no edema, pulses present Neurological: moves all 4 limbs A x O x 2 Skin: normal turgor, cap refill <2 seconds Dx/Plan (1) SHAZIA (acute kidney injury) Code(s): N17.9 - ACUTE KIDNEY FAILURE, UNSPECIFIED Status: Acute Comment: Resolved with fluid replacement (2) Hypernatremia Code(s): E87.0 - HYPEROSMOLALITY AND HYPERNATREMIA Status: Acute Comment: Persistent, resume IVF's with D5W at 75ml/h to increase free H20 intake, repeat Na+ level in am (3) Sepsis Code(s): A41.9 - SEPSIS, UNSPECIFIED ORGANISM Status: Suspected Comment: Suspected due to aspiration pneumonia, resolved (4) Aspiration pneumonia Code(s): J69.0 - PNEUMONITIS DUE TO INHALATION OF FOOD AND VOMIT Status: Acute Qualifiers: Aspiration pneumonia type: unspecified Laterality: unspecified laterality Comment: Continue Augmentin suspension, aspiration precautions (5) Hypophosphatemia Code(s): E83.39 - OTHER DISORDERS OF PHOSPHORUS METABOLISM Status: Acute Comment: KPhos QID with meals (6) Ischemic cardiomyopathy Code(s): I25.5 - ISCHEMIC CARDIOMYOPATHY Status: Chronic Comment: EF 35%, continue supportive care, compensated currently (7) NSVT (nonsustained ventricular tachycardia) Code(s): I47.2 - VENTRICULAR TACHYCARDIA Status: Acute Comment: Continue Coreg and Digoxin, ICD in place, Amiodarone 400mg TID loading with plan for 200mg Daily on d/c - Plan continue antibiotics, PT/OT, social media sr strategy manager Stable currently -: Continue Amiodarone 400mg TID -: Continue IVF D5W at 75ml/h -: Continue Augmetin -: Continue KPhos 500mg TID * AM lab: BMP
[2017-04-23] MEDS: Enoxaparin Sodium 30 MG/0.3 ML SYRINGE SC SCH (20:38)
[2017-04-24] MEDS: Insulin Regular 300 UNITS/3 ML VIAL SC PRN ×3 (00:23→12:40)
[2017-04-24] MEDS: Digoxin 0.125 MG TAB PO SCH (09:27)
[2017-04-24] MEDS: K-Phos Neutral 250 MG TAB PO SCH (09:27)
[2017-04-24] MEDS: Amoxicillin/Potassium Clav 600 mg/5 ml Oral Suspension PO SCH (09:27)
[2017-04-24] MEDS: Nystatin Powder 15 GM BOT TOP SCH (09:28)
[2017-04-24] MEDS: Carvedilol 3.125 MG TAB PO SCH (09:28)
[2017-04-24 10:36] LABS: Anion Gap 14 mmol/L (10-20); BUN (Urea Nitrogen) 8 mg/dL (8.4-25.7); Calc. Creatinine Clearance 70 mL/min (70-130); Calcium 8.1 mg/dL (7.8-10.44); Carbon Dioxide 28 mmol/L (23-31); Chloride 107 mmol/L (98-107); Estimated GFR-MDRD Greater than 90
[2017-04-24 12:36] VITALS: BP 152/67; TEMP 98.7
--- NOTE | 2017-04-24 18:38 | DIS ---
DATE OF ADMISSION: 04/19/2017 DATE OF DISCHARGE: 04/24/2017 DISCHARGE DIAGNOSES: 1. Severe dehydration, iatrogenic, resolving. 2. Acute kidney injury on chronic kidney disease stage 2, resolved. 3. Hypernatremia secondary to #1, resolved. 4. Hypokalemia, resolved. 5. Contraction metabolic alkalosis secondarily to #1, resolved. 6. Nonsustained ventricular tachycardia, improved with amiodarone. 7. Chronic systolic congestive heart failure with ejection fraction of 35%-40%, compensated. 8. Idioventricular rhythm. 9. Diabetes mellitus type 2, insulin requiring. 10. Hypertension. 11. Advanced dementia. 12. Status post bilateral above the knee amputations. CONSULTATION: Dr. Hopkins with Cardiology Service. PERTINENT LABORATORY DATA AND X-RAY FINDINGS: Sodium ranged between 145-153, potassium ranged betwe en 3.4-3.9, creatinine ranged between 0.71-1.31. Serum osmolality ranged between 320-342, phosphoro us ranged between 2.2-3.6, magnesium ranged between 2.1-2.3, folate level 7.9. Cortisol 16.5. Stephanie min B12 level 348. CBC showed white blood cell count ranging between 11.1-15.2, hemoglobin 12.8, di goxin level 0.95 on 04/19/2017. Urine culture dated 04/19/2017 showed no growth at 48 hours. Stool culture negative, 04/19/2017. C. difficile antigen toxin dated 04/19/2017 negative. A 2D transtho racic echocardiogram dated 02/23/2017 showed ejection fraction of 35%-40%. Moderate left atrial dil ation. Severe tricuspid valve regurgitation. Portable chest x-ray dated 04/18/2017 showed chronic changes in the left mid and lower lung zone. No acute process identified. CT of the abdomen and pe lvis dated 04/19/2017 showed no acute intraabdominal process. HOSPITAL COURSE: Patient was initially admitted to the telemetry unit after presenting with nausea, vomiting, and diarrhea. The patient was noted with elevated creatinine and associated acute kidney injury, initiated on IV fluid hydration. The patient was also noted with concomitant hyponatremia with clinical evidence of severe dehydration. The patient was discontinued on Lasix therapy and giv en IV fluids with increased free water intake in the hospital course. Patient had multiple metaboli c derangements including hyponatremia, hypokalemia, and hypophosphatemia receiving replacement elect rolytes therapy throughout the hospital course. Due to the electrolyte disturbance, the patient was noted with nonsustained episodes of ventricular tachycardia as well as an idioventricular rhythm an d atrial fibrillation. Consultation was obtained by the Cardiology service with recommendations to initiate amiodarone therapy at which point patient was placed on 400 mg t.i.d. in conjunction with d igoxin and Coreg. Patient's overall heart rate had improved with sinus bradycardia noted on most re cent telemetry tracing. Overall, patient remained clinically stable after correction of multiple me tabolic derangements and dehydration and ready for discharge on 04/24/2017. DISCHARGE MEDICATIONS: 1. Amiodarone 200 mg 1 tablet p.o. daily. 2. Augmentin ES suspension 600 mg p.o. b.i.d. until 04/27/2017. 3. Lipitor 20 mg p.o. at bedtime. 4. Coreg 3.125 mg p.o. b.i.d. 5. Lanoxin 0.125 mg p.o. daily. 6. Pepcid 20 mg p.o. b.i.d. 7. Lasix 40 mg 1 tablet p.o. daily. 8. Humalog 10 units subcutaneously t.i.d. with meals. 9. Levemir 7 units subcutaneously at bedtime. 10. Lisinopril 10 mg 1 tablet p.o. daily. 11. Namenda 5 mg p.o. b.i.d. 12. Flomax 0.4 mg p.o. daily. FOLLOWUP: The patient may follow up with his primary care provider, Dr. Tito Zaidi at [facility]. CONDITION ON DISCHARGE: Fair. ACTIVITY: [place]. DIET: ADA with pureed texture nectar thick liquids. SPECIAL INSTRUCTIONS: Check BMP and digoxin level weekly. CODE STATUS: FULL. DISPOSITION: Discharged to [facility], 04/24/2017. Total time preparing and coordinating discharge is 37 minutes.
== END 2017-04-24 14:31 | DRG 871 ==
LOC: ERS 23:43 → 2NO 04-19 00:51
PROVIDERS: ADMIT Internal Medicine; ATTEND Internal Medicine
DX: A41.9 Sepsis, unspecified organism (principal); J69.0 Pneumonitis due to inhalation of food and vomit; N17.9 Acute kidney failure, unspecified; E87.0 Hyperosmolality and hypernatremia; E87.3 Alkalosis; E11.22 Type 2 diabetes mellitus with diabetic chronic kidney disease; E86.0 Dehydration; I13.0 Hypertensive heart and chronic kidney disease with heart failure and stage 1 through stage 4 chronic kidney disease, or unspecified chronic kidney disease; I50.22 Chronic systolic (congestive) heart failure; F03.90 Unspecified dementia, unspecified severity, without behavioral disturbance, psychotic disturbance, mood disturbance, and anxiety; I48.0 Paroxysmal atrial fibrillation; I47.1 Supraventricular tachycardia; E44.1 Mild protein-calorie malnutrition; Z68.44 Body mass index [BMI] 60.0-69.9, adult; N18.2 Chronic kidney disease, stage 2 (mild); Z79.4 Long term (current) use of insulin; I25.5 Ischemic cardiomyopathy; E83.39 Other disorders of phosphorus metabolism; E87.6 Hypokalemia; R13.10 Dysphagia, unspecified; N40.0 Benign prostatic hyperplasia without lower urinary tract symptoms; E78.5 Hyperlipidemia, unspecified; Z89.612 Acquired absence of left leg above knee; Z89.611 Acquired absence of right leg above knee; I25.10 Atherosclerotic heart disease of native coronary artery without angina pectoris; Z95.1 Presence of aortocoronary bypass graft; M62.50 Muscle wasting and atrophy, not elsewhere classified, unspecified site; I07.1 Rheumatic tricuspid insufficiency
CPT/HCPCS: 36415; 36416; 74176; 80048; 80053; 80069; 80162; 81001; 82010; 82533; 82607; 82746; 83605; 83630; 83735; 83930; 84100; 84484; 85025; 87015; 87045; 87046; 87086; 87324; 87449; 87899; 96360; A4216; G8996-GN-CJ; G8996-GN-CM; G8996-GN-CN; G8997-GN-CJ; G8997-GN-CL; J0696; J1160; J1644; J1650; J1815; J2060; J2185; J2543; J3480; J7050; J7070; S0028